=== PATIENT | female | born 1970 | race Caucasian/White ===

== ENCOUNTER 2018-07-22 06:51 | Observation (INO) | payer BC ==
[2018-07-22] VITALS (27 sets, daily range): BP systolic 107–136; BP diastolic 54–77; PULSE 99–122; RESP 12–24; Ht 154.9 cm; Wt 65.2 kg
[~2018-07-22] VITALS: Ht 154.9 cm; Wt 65.2 kg
[~2018-07-22 06:51] MED LIST: BIRTH CONTROL ORAL; FERR325C PO
[2018-07-22] MEDS ORDERED: SEVOFLURANE 15 MIN ONE (07:00)
[2018-07-22] MEDS ORDERED: CEFAZOLIN 1 GM INJ ONE (08:51)
[2018-07-22] MEDS ORDERED: PROPOFOL 20 ML ONE (08:51)
[2018-07-22] MEDS ORDERED: FENTAnyl 50 MCG/ML VIAL ONE (08:51)
[2018-07-22] MEDS ORDERED: MIDAZOLAM 1 MG/ML 2 ML INJ ONE (08:51)
[2018-07-22] MEDS ORDERED: ROCURONIUM 50 MG INJ ONE (08:51)
[2018-07-22] MEDS ORDERED: DEXAMETHASONE 4 MG/ML 5 ML INJ ONE (08:56)
[2018-07-22] MEDS ORDERED: ONDANSETRON 4 MG INJ ONE (08:56)
[2018-07-22] MEDS ORDERED: METOCLOPRAMIDE 10 MG INJ ONE (08:56)
[2018-07-22] MEDS ORDERED: SOD CHLORIDE 0.9% 1,000 ML IV ONE (09:00)
[2018-07-22] MEDS ORDERED: ONDANSETRON 4 MG INJ IV PRN (09:00)
[2018-07-22] MEDS ORDERED: MEPERIDINE 25 MG INJ IV PRN (09:00)
[2018-07-22] MEDS ORDERED: HYDROmorphONE 1 MG/5 ML IV SYRINGE IV PRN ×3 (09:00)
[2018-07-22] MEDS ORDERED: DIPHENHYDRAMINE 50 MG INJ IV PRN ×2 (09:00→12:00)
[2018-07-22] MEDS ORDERED: FENTAnyl 50 MCG/ML VIAL IV PRN ×3 (09:00)
[2018-07-22] MEDS ORDERED: LABETALOL HCL 20MG INJ IV PRN (09:00)
[2018-07-22] MEDS ORDERED: CEFAZOLIN 2 GM/50 ML (PMX) 50 ML IVPB ONE (09:00)
[2018-07-22] MEDS ORDERED: EPHEDrine 25 MG/5 ML SYG IV PRN (09:00)
[2018-07-22] MEDS ORDERED: METOCLOPRAMIDE 10 MG INJ IV PRN (09:00)
--- NOTE | 2018-07-22 09:00 | PREAC ---
Date/Time of Note Date/Time of Note DATE: 07/22/18 TIME: 08:57 Anesthesia Eval and Record Evaluation Time Pre-Procedure Interview DATE: 07/22/18 TIME: 08:57 Age 47 Sex female NPO: 8 hrs Preoperative diagnosis Left Thyroid Nodule Planned procedure Total Thyroidectomy Past Medical History Past Medical History: None Surgery & Anesthesia Issues No known issue Meds Anticoagulation: No Beta Nahun within 24 hr: No Reason Beta Nahun not given: Pt. not on B-Nahun Discontinued Reported Medications [ Control] No Conflict Check, 1 TAB ORAL DAILY 12/16/15 Ferrous Sulfate (Iron) 325 Mg Capsule.er, 325 MG PO, CAP 12/16/15 Current Medications Cefazolin Sodium/ Dextrose 50 ml @ 100 mls/hr PRE-OP ONCE IVPB ; Start 07/22/18 at 09:00; Stop 07/22/18 at 09:29 Sodium Chloride 1,000 ml @ 75 mls/hr [id number] ONCE IV ; Start 07/22/18 at 09:00; Stop 07/22/18 at 22:19 Meds reviewed: Yes Allergies Coded Allergies: No Known Allergy (Unverified , 07/22/18) Allergies Reviewed: Yes Labs/Studies Labs Reviewed: Reviewed by anesthesiologist test: Negative Studies: ECG (n/a), CXR (No acute abnormality is appreciated) Pre-procedure Exam Last vitals Vital Signs Date Temp Pulse Resp B/P (MAP) Pulse Ox O2 O2 Flow FiO2 Time Delivery Rate 07/22/18 98.6 99 16 120/61 98 Room Air 08:05 (80) Airway: Adequate mouth opening, Adequate thyromental dist Mallampati: Mallampati II Teeth: Normal Lung: Normal Heart: Normal ASA Physical Status ASA physical status: 2 Emergency: None Planned Anesthetic General/MAC: ETT Planned Pain Management Parenteral pain med Pre-operative Attestations Prior to commencing anesthesia and surgery, the patient was re-evaluated, there was verification of: *The patient's identity *The results of appropriate recent lab work and preoperative vital signs *The above evaluation not changing prior to induction *Anesthetic plan, risk benefits, alternative and complications discussed with patient/family; questions answered; patient/family understands, accepts and wishes to proceed. JOSIE CARPENTER MD Jul 22, 2018 09:00
--- NOTE | 2018-07-22 09:56 | PAC ---
Date/Time of Note Date/Time of Note DATE: 07/22/18 TIME: 09:55 Post-Anesthesia Notes Post-Anesthesia Note Last documented vital signs Vital Signs Date Temp Pulse Resp B/P (MAP) Pulse Ox O2 O2 Flow FiO2 Time Delivery Rate 07/22/18 98.6 99 16 120/61 98 Room Air 09:55 (80) Activity: WNL Respiratory function: WNL Cardiovascular function: WNL Mental status: Baseline Pain reasonably controlled: Yes Hydration appropriate: Yes Nausea/Vomiting absent: Yes JOSIE CARPENTER MD Jul 22, 2018 09:56
[2018-07-22] MEDS ORDERED: BUPIVACAINE 0.25% (MPF) 30 ML INJ ONE (09:59)
[2018-07-22] MEDS ORDERED: SUGAMMADEX SODIUM 200 MG/2 ML VIAL IV ONE (11:20)
[2018-07-22] MEDS ORDERED: morphine 2 MG INJ IV PRN (11:30)
--- NOTE | 2018-07-22 11:31 | OPR ---
Date/Time of Note Date/Time of Note DATE: 07/22/18 TIME: 11:24 Operative Report Procedure Date: Jul 22, 2018 Preoperative Diagnosis follicular cells on thyroid nodule Postoperative Diagnosis same Operation/Procedure Performed 1. total thyroidectomy 2. localized adjacent tissue transfer with the use of skin flaps 18 sq cm defect of the neck 3. 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 She underwent genetic testing with a high risk for malignancy. She is brought to the OR for a total thyroidectomy. Risks alternatives benefits and personal were discussed with the patient. Potential complications including but not limited to bleeding infection recurrent laryngeal nerve injury recurrence of cancer need for additional operations and possible need for tracheostomy were discussed the patient however remote the risk was. Patient expressed understanding and consents to the operation. Procedure Description Patient is taken to the OR and prepped and draped in usual sterile fashion. Surgical time was performed. IV antibiotics given. Call incision made to 15 blade. Dissection with cautery was carried down to the platysmal layer. Superior and inferior skin flaps were raised. Superior inferior platysmal flaps were raised. Strap muscles were divided in the midline and retracted laterally. Attention was then paid to the thyroid. An obvious hardened thyroid nodule was apparent in the left side of the thyroid. The right side. For the most part normal grossly. This is consistent with the findings of the imaging that was reviewed prior to the operation. The isthmus was mobilized by creating retro- thyroidal space between the trachea and the thyroid. The right middle thyroidal vein was then ligated using a LigaSure. The superior and inferior poles were mobilized. Safe dissection was made paying particular attention to the recurrent laryngeal nerve. The subcapsular dissection was performed the right side due to no nodule being apparent here. This was safely retracted medially. Surgical markings were placed with single short right superior single long right inferior. Attention was then paid to the left thyroid where the nodule was apparent. The middle thyroidal vein was ligated using a LigaSure. The superior and inferior poles were mobilized and further retraction was placed. Careful attention was paid to the recurrent laryngeal nerve region. The surgical site was irrigated and a Valsalva maneuver with 40 cm of water was performed. No evidence of bleeding was evident. The irrigation was suctioned out. The strap muscles were then reapproximated with interrupted 3-0 Vicryl. Platysma muscles were reapproximated with interrupted 3-0 Vicryl. Superior-inferior localized adjacent tissue transfer with use of skin flaps was performed. Multilayer closed with interrupted 3-0 Vicryl and running 4-0 Monocryl. Therapeutic subcutaneous local anesthesia was injected at the incision site. Steri-Strips and dry dressings were applied. Balbir ALVARENGA Jul 22, 2018 11:31
[2018-07-22] MEDS ORDERED: LORAZEPAM 2 MG INJ ONE (11:35)
[2018-07-22] MEDS ORDERED: MIDAZOLAM 1 MG/ML 2 ML INJ IV PRN (12:00)
[2018-07-22] MEDS ORDERED: LORAZEPAM 2 MG INJ IV PRN (12:00)
[2018-07-22] MEDS: SOD CHLORIDE 0.9% 1,000 ML IV SCH ×2 (13:35→21:30)
[2018-07-22] MEDS: CEFAZOLIN 2 GM/50 ML (PMX) 50 ML IVPB SCH ×2 (15:58→21:38)
--- NOTE | 2018-07-22 17:23 | RADRPT ---
Vent Rate: 94 bpm RR Interval: 636 msec MO Interval: 121 msec QRS Duration: 78 msec QT Interval: 345 msec QTC Interval: 433 msec P-R-T [place]: 44 - 47 - 41 degrees Sinus rhythm...normal P axis, V-rate 50- 99 Electronically Signed By: Rudy Guzman
[2018-07-22] MEDS: HYDROCODONE/APAP (5/325) TAB PO PRN (18:35)
--- NOTE | 2018-07-22 19:05 | HP ---
DATE OF ADMISSION: 07/22/2018 CHIEF COMPLAINT AND HISTORY OF PRESENTING ILLNESS: The patient is a 47-year-old female with a histor y of thyroid nodule and biopsy showed follicular cells. The patient subsequently underwent genetic t esting which was apparently positive for high risk for malignancy. The patient was seen by Dr. Janet gillette outpatient and was brought to the OR. The patient underwent total thyroidectomy. The patient h as significant postoperative pain and is being admitted for further evaluation and management. The p atient denies history of chest pain or abdominal pain. No vomiting. Denies any headache. No report ed fever or chills. No reported focal weakness. REVIEW OF SYSTEMS: Other than postoperative pain, rest of review of systems is unremarkable. PAST SURGICAL HISTORY: Status post D and C by Dr. Darline Luong in 2016. ALLERGIES: NONE. SOCIAL HISTORY: No history of smoking or alcohol. FAMILY HISTORY: Negative for CA of the thyroid. PHYSICAL EXAMINATION: GENERAL: The patient to be awake, alert. VITAL SIGNS: Temperature 98.2, pulse 108, respiration 18, blood pressure 114/62, O2 saturation 99% o n 2 liters nasal cannula. HEENT: No eye discharge or redness. Nose and ears are normal externally. NECK: Dressing is intact. CHEST: Fairly clear. CARDIOVASCULAR: S1, S2 normal. No murmur. ABDOMEN: Soft, nondistended, nontender. EXTREMITIES: No edema. NEUROLOGIC: The patient is awake, alert, fairly oriented with no gross focal deficit. LABORATORY DATA: WBC 12.8, hemoglobin 11.7, platelet 239. Sodium 139, potassium 4.2, BUN 7, creatin ine 0.5, glucose 125. Liver enzymes are normal. IMPRESSION: Thyroid nodule with positive follicular cells, status post genetic testing with high ris k for malignancy, status post total thyroidectomy. PLAN: The patient will be admitted on medical floor. The patient will be started on clear liquid di et, which will be advanced as tolerated. The patient will be given IV cefazolin as per protocol. Fo r pain, the patient will be given Tylenol, [place] and morphine depending on severity of the pain. We will use SCD for DVT prophylaxis. The patient's family was told to follow up with PCP upon discharge for further management. The patient will also follow up with the assisted living associate through PCP. Dictated By: JEAN REILLY/BEAU Conf#: [id number] DID#: [id number] CC: SHARAN ALVARENGA MD;*[facility]*
[2018-07-22] MEDS: CEPASTAT LOZENGE MT PRN (21:46)
[2018-07-23 00:10] VITALS: BP 112/68; PULSE 106; RESP 18
[2018-07-23] MEDS: SOD CHLORIDE 0.9% 1,000 ML IV SCH (02:09)
[2018-07-23 04:40] VITALS: BP 97/55; PULSE 97; RESP 18
[2018-07-23] MEDS: HYDROCODONE/APAP (5/325) TAB PO PRN ×3 (04:54→18:13)
[2018-07-23] MEDS: CEFAZOLIN 2 GM/50 ML (PMX) 50 ML IVPB SCH (05:33)
[2018-07-23 08:37] VITALS: BP 102/59; PULSE 86; RESP 18
--- NOTE | 2018-07-23 11:09 | PN ---
Date/Time of Note Date/Time of Note DATE: 07/23/18 TIME: 11:09 Assessment/Plan VTE Prophylaxis Risk score (from Ns)>0 risk: 7 SCD applied (from [facility]): Yes SCD contraindicated: other Pharmacological prophylaxis: other Pharm contraindication: other Lines/Catheters IV Catheter Type (from [facility]): Peripheral IV Urinary Cath still in place: No Assessment/Plan Assessment/Plan Thyroid nodule with positive follicular cells Status post genetic testing with high risk for malignancy Status post total thyroidectomy - per surgery - diet per surgery - IVF - pain control - wound care Leukocytosis - post op antibiotics per protocol - monitor CBC Patient seen in collaboration with Dr Rodas/ mayur staff. Result Diagram: 07/23/18 0454 07/23/18 0454 Results 24hrs Laboratory Tests Test 07/22/18 13:05 07/23/18 04:54 07/23/18 07:36 White Blood Count 12.8 #H 15.2 H Red Blood Count 4.34 4.14 L Hemoglobin 11.7 L 11.5 L Hematocrit 37.4 35.6 L Mean Corpuscular Volume 86.2 86.0 Mean Corpuscular Hemoglobin 27.0 L 27.8 L Mean Corpuscular Hemoglobin Concent 31.3 L 32.3 Red Cell Distribution Width 13.4 # 13.4 Platelet Count 339 389 Mean Platelet Volume 9.8 10.2 Immature Granulocytes % 1.000 H 0.300 Neutrophils % 91.5 H 87.0 H Lymphocytes % 6.3 L 8.2 L Monocytes % 0.7 4.4 Eosinophils % 0.2 0.0 Basophils % 0.3 0.1 Nucleated Red Blood Cells % 0.0 0.0 Immature Granulocytes # 0.130 H 0.050 H Neutrophils # 11.7 H 13.3 H Lymphocytes # 0.8 1.3 Monocytes # 0.1 L 0.7 Eosinophils # 0.0 0.0 Basophils # 0.0 0.0 Nucleated Red Blood Cells # 0.0 0.0 Sodium Level 139 141 Potassium Level 4.2 3.8 Chloride Level 109 108 Carbon Dioxide Level 23 24 Anion Gap 7 9 Blood Urea Nitrogen 7 9 Creatinine 0.50 0.45 Est Glomerular Filtrat Rate mL/min > 60 > 60 Glucose Level 125 132 Calcium Level 7.8 L 7.7 L Total Bilirubin 0.3 0.3 Direct Bilirubin 0.00 0.00 Indirect Bilirubin 0.3 0.3 Aspartate Amino Transf (AST/SGOT) 27 25 Alanine Aminotransferase (ALT/SGPT) 29 24 Alkaline Phosphatase 118 104 Total Protein 7.1 7.0 Albumin 3.9 3.6 Globulin 3.20 3.40 H Albumin/Globulin Ratio 1.21 1.05 Lab Scanned Report REFERENCE LAB Subjective 24 Hr Interval Summary Free Text/Dictation c/o throat pain when swallows Dressin Dry/Intact vss no events reported last night dw saff Constitutional: requiring IVF Eyes: no complaints ENT: pain (pain when swallows; beetr with pain ed ) Respiratory: no complaints Cardiovascular: no complaints Gastrointestinal: no complaints Genitourinary: no complaints Musculoskeletal: no complaints Exam/Review of Systems Exam Vitals Vital Signs Date Temp Pulse Resp B/P (MAP) Pulse Ox O2 O2 Flow FiO2 Time Delivery Rate 07/23/18 98.2 86 18 102/59 96 08:37 (73) 07/22/18 Nasal 2.0 16:00 Cannula Intake and Output 07/22/18 07/22/18 07/23/18 1515:00 23:00 07:00 IntakeIntake Total 1000 ml 800 ml 1000 ml OutputOutput Total 10 ml BalanceBalance 990 ml 800 ml 1000 ml Constitutional: alert, oriented, well developed Psych: nl mood/affect Head: normocephalic Eyes: nl lids, nl sclera ENMT: nl external ears & nose Neck: other (sp thyroid sx-DDI ) Cardiovascular: nl pulses, other (S1S2) Gastrointestinal: soft, non-tender Musculoskeletal: nl extremities to inspection Extremities: normal pulses Neurological: nl mental status, nl speech Skin: nl turgor Lymph: nontender Results Results 24hrs Laboratory Tests Test 07/22/18 13:05 07/23/18 04:54 07/23/18 07:36 White Blood Count 12.8 #H 15.2 H Red Blood Count 4.34 4.14 L Hemoglobin 11.7 L 11.5 L Hematocrit 37.4 35.6 L Mean Corpuscular Volume 86.2 86.0 Mean Corpuscular Hemoglobin 27.0 L 27.8 L Mean Corpuscular Hemoglobin Concent 31.3 L 32.3 Red Cell Distribution Width 13.4 # 13.4 Platelet Count 339 389 Mean Platelet Volume 9.8 10.2 Immature Granulocytes % 1.000 H 0.300 Neutrophils % 91.5 H 87.0 H Lymphocytes % 6.3 L 8.2 L Monocytes % 0.7 4.4 Eosinophils % 0.2 0.0 Basophils % 0.3 0.1 Nucleated Red Blood Cells % 0.0 0.0 Immature Granulocytes # 0.130 H 0.050 H Neutrophils # 11.7 H 13.3 H Lymphocytes # 0.8 1.3 Monocytes # 0.1 L 0.7 Eosinophils # 0.0 0.0 Basophils # 0.0 0.0 Nucleated Red Blood Cells # 0.0 0.0 Sodium Level 139 141 Potassium Level 4.2 3.8 Chloride Level 109 108 Carbon Dioxide Level 23 24 Anion Gap 7 9 Blood Urea Nitrogen 7 9 Creatinine 0.50 0.45 Est Glomerular Filtrat Rate mL/min > 60 > 60 Glucose Level 125 132 Calcium Level 7.8 L 7.7 L Total Bilirubin 0.3 0.3 Direct Bilirubin 0.00 0.00 Indirect Bilirubin 0.3 0.3 Aspartate Amino Transf (AST/SGOT) 27 25 Alanine Aminotransferase (ALT/SGPT) 29 24 Alkaline Phosphatase 118 104 Total Protein 7.1 7.0 Albumin 3.9 3.6 Globulin 3.20 3.40 H Albumin/Globulin Ratio 1.21 1.05 Lab Scanned Report REFERENCE LAB Medications Medication Current Medications Cefazolin Sodium/ Dextrose 50 ml @ 100 mls/hr Q8H IVPB Last administered on 07/23/18at 05:33; Admin Dose 100 MLS/HR; Start 07/22/18 at 14:00; Stop 07/23/18 at 13:59 Morphine Sulfate (morphine) 2 mg Q2H PRN IV PAIN LEVEL 6-10; Start 07/22/18 at 11:30 Acetaminophen/ Hydrocodone Bitart ([place] (5/325)) 1 tab Q6H PRN PO PAIN LEVEL 6-10 Last administered on 07/23/18at 10:54; Admin Dose 1 TAB; Start 07/22/18 at 11:30 Sodium Chloride 1,000 ml @ 100 mls/hr Q10H IV Last administered on 07/23/18at 02:09; Admin Dose 100 MLS/HR; Start 07/22/18 at 11:30 Phenol (Cepastat Lozenge) 1 lozenge PRN PRN MT SORE THROAT Last administered on 07/22/18at 21:46; Admin Dose 1 LOZENGE; Start 07/22/18 at 11:30 ZAKI WHATLEY Jul 23, 2018 11:09
[2018-07-23 15:00] VITALS: BP 111/65; PULSE 85; RESP 18
--- NOTE | 2018-07-23 15:32 | PN ---
DATE: 07/23/2018 Postop day #1, status post total thyroidectomy. SUBJECTIVE: No specific complaint. Has tolerated diet. Apparently last night has been complaining of some tingling and numbness of the fingers, but today morning she has not complained any more. OBJECTIVE: VITAL SIGNS: Temperature maximum 98.2, heart rate 97, respirations 18, blood pressure 97/55, saturation 98% on 2 liter nasal cannula. HEART: Regular. LUNGS: Clear. LABORATORY DATA: Today at 5:00 a.m., sodium, potassium, BUN, creatinine normal. Calcium is 7.7 and yesterday afternoon at 1:00 p.m. it was 7.8, albumin is 3.6. Hematology: WBC is 15,200 with 87% segmented, hemoglobin 11.5, hematocrit 35.6. Clinically, her voice is slightly hoarse and harsh. dressing is intact. ASSESSMENT AND PLAN: Postop day #1, considering the leukocyte count of 15,000 and shift to the left, and calcium is very low at 7.7, I do not know what was the level of calcium preop, I do wonder if she have yesterday's post-operation, therefore, to be on the safe side, we are going to keep the patient overnight to repeat the calcium later on today and also tomorrow morning and also CBC to make sure the leukocyte count is getting back to normal. Dictated By: TAMMY VANN MD PS/NTS Conf#: [id number] DID#: [id number] CC: JEAN DIAZ MD; SHARAN ALVARENGA MD;*EndCC* MTDD
[2018-07-23 19:15] VITALS: BP 106/59; PULSE 79; RESP 20
[2018-07-23] MEDS: CALCIUM/VITAMIN D (500/200) TAB PO SCH (21:28)
[2018-07-24 02:10] VITALS: BP 101/58; PULSE 88; RESP 20
[2018-07-24] MEDS: HYDROCODONE/APAP (5/325) TAB PO PRN ×2 (06:30→15:39)
[2018-07-24 08:00] VITALS: BP 111/60; PULSE 85; RESP 20
[2018-07-24] MEDS: CEPASTAT LOZENGE MT PRN (08:00)
--- NOTE | 2018-07-24 08:09 | PN ---
Date/Time of Note Date/Time of Note DATE: 07/24/18 TIME: 08:08 Assessment/Plan VTE Prophylaxis Risk score (from Nsg)>0 risk: 3 SCD applied (from Nsg): Yes Lines/Catheters IV Catheter Type (from Nrsg): [place] Urinary Cath still in place: No Assessment/Plan Assessment/Plan Thyroid nodule with positive follicular cells status post genetic testing with high risk for malignancy status post total thyroidectomy. Result Diagram: 07/24/18 0429 07/24/18 0429 Results 24hrs Laboratory Tests Test 07/23/18 13:47 07/24/18 04:29 Calcium Level 7.4 L 8.4 White Blood Count 8.8 # Red Blood Count 3.85 L Hemoglobin 10.5 L Hematocrit 33.6 L Mean Corpuscular Volume 87.3 Mean Corpuscular Hemoglobin 27.3 L Mean Corpuscular Hemoglobin Concent 31.3 L Red Cell Distribution Width 13.8 Platelet Count 333 Mean Platelet Volume 10.5 H Immature Granulocytes % 0.300 Neutrophils % 52.3 Lymphocytes % 39.2 Monocytes % 5.9 Eosinophils % 1.5 Basophils % 0.8 Nucleated Red Blood Cells % 0.0 Immature Granulocytes # 0.030 Neutrophils # 4.6 Lymphocytes # 3.4 H Monocytes # 0.5 Eosinophils # 0.1 Basophils # 0.1 Nucleated Red Blood Cells # 0.0 Sodium Level 139 Potassium Level 3.6 Chloride Level 105 Carbon Dioxide Level 28 Anion Gap 6 Blood Urea Nitrogen 13 Creatinine 0.60 Est Glomerular Filtrat Rate mL/min > 60 Glucose Level 106 Subjective 24 Hr Interval Summary Free Text/Dictation feels better; tolerates diet; pain is getting less dw staff Exam/Review of Systems Exam Vitals Vital Signs Date Temp Pulse Resp B/P (MAP) Pulse Ox O2 O2 Flow FiO2 Time Delivery Rate 07/24/18 97.9 88 20 101/58 94 Room Air 02:10 (72) 07/22/18 2.0 16:00 Intake and Output 07/23/18 07/23/18 07/24/18 1515:00 23:00 07:00 IntakeIntake Total 900 ml 600 ml 250 ml OutputOutput Total 200 ml BalanceBalance 900 ml 600 ml 50 ml Results Results 24hrs Laboratory Tests Test 07/23/18 13:47 07/24/18 04:29 Calcium Level 7.4 L 8.4 White Blood Count 8.8 # Red Blood Count 3.85 L Hemoglobin 10.5 L Hematocrit 33.6 L Mean Corpuscular Volume 87.3 Mean Corpuscular Hemoglobin 27.3 L Mean Corpuscular Hemoglobin Concent 31.3 L Red Cell Distribution Width 13.8 Platelet Count 333 Mean Platelet Volume 10.5 H Immature Granulocytes % 0.300 Neutrophils % 52.3 Lymphocytes % 39.2 Monocytes % 5.9 Eosinophils % 1.5 Basophils % 0.8 Nucleated Red Blood Cells % 0.0 Immature Granulocytes # 0.030 Neutrophils # 4.6 Lymphocytes # 3.4 H Monocytes # 0.5 Eosinophils # 0.1 Basophils # 0.1 Nucleated Red Blood Cells # 0.0 Sodium Level 139 Potassium Level 3.6 Chloride Level 105 Carbon Dioxide Level 28 Anion Gap 6 Blood Urea Nitrogen 13 Creatinine 0.60 Est Glomerular Filtrat Rate mL/min > 60 Glucose Level 106 Medications Medication Current Medications Morphine Sulfate (morphine) 2 mg Q2H PRN IV PAIN LEVEL 6-10; Start 07/22/18 at 11:30 Acetaminophen/ Hydrocodone Bitart ([place] (5/325)) 1 tab Q6H PRN PO PAIN LEVEL 6-10 Last administered on 07/24/18 06:30; Admin Dose 1 TAB; Start 07/22/18 at 11:30 Phenol (Cepastat Lozenge) 1 lozenge PRN PRN MT SORE THROAT Last administered on 07/24/18 08:00; Admin Dose 1 LOZENGE; Start 07/22/18 at 11:30 Calcium/Vitamin D (Oyster [place]/ Vit-D (500/200)) 2 tab BID PO Last administered on 07/23/18at 21:28; Admin Dose 2 TAB; Start 07/23/18 at 21:00 ZAKI WHATLEY Jul 24, 2018 08:09
[2018-07-24] MEDS: CALCIUM/VITAMIN D (500/200) TAB PO SCH (09:13)
--- NOTE | 2018-07-24 16:25 | PN ---
DATE: 07/24/2018 Postop day #2 status post total thyroidectomy. SUBJECTIVE: Feels okay. Has been out of bed and walked around, tolerating diet. OBJECTIVE: GENERAL: Awake, alert, oriented. VITAL SIGNS: Temperature maximum 98.4, heart rate 85, respirations 20, blood pressure 111/62, satura tion 97% on room air. HEENT: Voice still is slightly hoarse. Dressing was removed. Wound is clean. No swelling, no blee ding. HEART: Regular. LUNGS: Clear. ABDOMEN: Soft. HOSPITAL COURSE: WBC dropped to normal at 8800 with 52% segmented, hemoglobin 10.5, hematocrit 33.6. Chemistry: The calcium yesterday afternoon at 2:00 was 7.4 which has dropped even more than before , so the patient was started on calcium and vitamin D tablets. Last night, 1 gram of calcium and 400 units of vitamin D2 today morning at 4:30, blood test shows calcium was increased to 8.4. The patie nt does not have any history of hypocalcemia. Therefore from on surgical point of view can be discha rged home with prescription for pain medication which has been written by Dr. Alvarenga and prescription fo r the oyster shell calcium plus vitamin D, which will be written and will be given by the medical ser vice. The patient was instructed that she absolutely cannot stop taking the calcium and vitamin D an d she has to take it twice a day for the time being and to call Dr. Klein' office and make an appoint ment for Dr. Alvarenga for followup. The patient understood and her was on the bedside, understood and they will do that. Dictated By: TAMMY VANN MD PS/NTS Conf#: [id number] DID#: [id number] CC: LIZZIE KLEIN MD; JEAN DIAZ MD; SHARAN ALVARENGA MD;*End*
== END 2018-07-24 16:10 | disposition home or self-care (01) ==
LOC: SDS 06:51 → REC 11:23 → INTOOBSV 11:23 → MS1 12:47
PROVIDERS: ADMIT Surgery; ATTEND Surgery
DX: C73 Malignant neoplasm of thyroid gland (principal)
CPT/HCPCS: 14040; 60240; 71045; 80048; 80053; 82310; 84703; 85025; 88307; 93005; J0690; J1100; J1170; J2060; J2250; J2405; J2765; J3010; J7030; Z7500; Z7512; Z7610; 99217; G0378

== ENCOUNTER → 2018-10-04 | Outpatient (CLI) | payer BC | END | disposition home or self-care (01) | LOC: NUC 13:52 | PROVIDERS: ATTEND Specialist | DX: C73 Malignant neoplasm of thyroid gland (principal) | CPT/HCPCS: 78018; A9517 ==